=== PATIENT | male | born 1980 | race Caucasian/White ===

== ENCOUNTER 2018-11-29 09:46 | Emergency (ER) | payer MEDICAID, OTHER ==
[~2018-11-29] VITALS: Ht 175.3 cm; Wt 81.6 kg
[2018-11-29 10:24] VITALS: BP 127/85
[2018-11-29] MEDS ORDERED: FLUORESCEIN SOD 1 MG TEST STRIP LEFTEYE ONE (10:45)
[2018-11-29] MEDS ORDERED: TETRACAINE HCL 0.5% OPTH(EYE) SOLN 4ML LEFTEYE ONE (10:45)
== END 2018-11-29 11:18 | disposition home or self-care (01) ==
LOC: ER 09:46
DX: H10.9 Unspecified conjunctivitis (principal)